=== PATIENT | male | born 1975 | race Caucasian/White ===

== ENCOUNTER → 2016-09-20 | Outpatient (CLI) | payer OTHER ==
--- NOTE | ~2016-09-20 | CR63 ---
[facility] A Service of [facility] RADIOLOGY TEXT RESULTS PATIENT: MARINA MALONEY LOCATION: [facility] : 71 UNIT #: [id number] AGE: [address]: Ryne Arango MD SEX: M ORDER DR: [id number] [facility] [address] [place], [place] [address] [id number] MR#: [id number] Acc #: [id number] NAME: MARINA MALONEY : 1975 SEX: M STUDY DATE/TIME: 09/20/2016 15:02 UNIT: [facility] ROOM: STUDY DESCRIPTION: CR Chest 2 View Attending Physician: Ryne Arango M.D. Referring Physician: Ryne Arango M.D. Ordering Physician: Ryne Arango M.D. Primary Care Physician: No Primary Care Physician MEDICAL IMAGING REPORT This report is preliminary unless electronic signature is present EXAM 2 view chest 09/20/2016 INDICATIONS Chest tube placement right effusion. Followup. PROCEDURE Frontal view of the chest COMPARISON 09/20/2016 at 1502 hours FINDINGS There is a right basilar chest tube in place. It is only partially included but the side port appears to be outside of the chest cavity. There is a small right effusion. No visible pneumothorax but there is significant bullous change in the right apex. Emphysema with areas of scarring that are stable. IMPRESSION The right basilar chest tube is only partially included but the side port appears to be outside the chest cavity. Suggest repositioning. Stable small right effusion. Dictated by... Reza Velazquez M.D. THIS IS AN ELECTRONICALLY VERIFIED REPORT Reza Velazquez M.D. at 09/21/2016 7:06 AM Lars TD: 09/20/2016 18:54 [facility] A Service of [facility] RADIOLOGY TEXT RESULTS PATIENT: MARINA MALONEY LOCATION: [facility] : 71 UNIT #: [id number] AGE: [address]: Ryne Arango MD SEX: M ORDER DR: JOB #: [id number] MEDICAL IMAGING REPORT Page 1 of 1 COPY
== END | disposition home or self-care (01) ==
LOC: CRAD 14:45
DX: J93.9 Pneumothorax, unspecified (principal); J90 Pleural effusion, not elsewhere classified; Z97.8 Presence of other specified devices
CPT/HCPCS: 71020

== ENCOUNTER → 2016-10-18 | Outpatient (CLI) | payer OTHER ==
--- NOTE | ~2016-10-18 | CR63 ---
[facility] A Service of [facility] RADIOLOGY TEXT RESULTS PATIENT: MARINA LOWE LOCATION: [facility] : 71 UNIT #: [id number] AGE: [address]: Ryne Arango MD SEX: M ORDER DR: [id number] [place], [place] [address] [id number] MR#: [id number] Acc #: [id number] NAME: MARINA LOWE : 1975 SEX: M STUDY DATE/TIME: 10/18/2016 14:34 UNIT: [facility] ROOM: STUDY DESCRIPTION: CR Chest 2 View Attending Physician: Ryne Arango M.D. Referring Physician: Ryne Arango M.D. Ordering Physician: Ryne Arango M.D. Primary Care Physician: No Primary Care Physician MEDICAL IMAGING REPORT This report is preliminary unless electronic signature is present EXAM Chest x-ray 10/18/2016 HISTORY Follow up pneumothorax. TECHNIQUE PA and lateral upright chest series. FINDINGS Right basilar chest tube has been removed since 09/20/2016. No definite pneumothorax is visible, but sensitivity is limited secondary to severe pulmonary emphysema with large bullous airspaces replacing the upper lungs, particularly on the right. Scattered pulmonary and pleural scarring in the left mid lung and right lung base. No visible airspace consolidation. Heart size is normal. IMPRESSION 1. Severe pulmonary emphysema. 2. Pulmonary and pleural scarring as noted. 3. No visible pneumothorax. Dictated by... Jonny Stern M.D. THIS IS AN ELECTRONICALLY VERIFIED REPORT Jonny Stern M.D. at 10/19/2016 4:35 PM CARLOS MANUELW/kaela TD: 10/18/2016 18:10 JOB #: [id number] MEDICAL IMAGING REPORT [facility] A Service of [facility] RADIOLOGY TEXT RESULTS PATIENT: MARINA LOWE LOCATION: [facility] : 71 UNIT #: [id number] AGE: [address]: Ryne Arango MD SEX: M ORDER DR: Page 1 of 1 COPY
== END | disposition home or self-care (01) ==
LOC: CRAD 14:23
DX: J93.9 Pneumothorax, unspecified (principal); J43.9 Emphysema, unspecified; J98.4 Other disorders of lung
CPT/HCPCS: 71020